=== PATIENT | female | born 1990 | race Caucasian/White ===

== ENCOUNTER 2017-06-20 15:11 | Emergency (ER) | payer BC, MEDICAID ==
[~2017-06-20] VITALS: Ht 167.6 cm; Wt 113.4 kg
[2017-06-20 15:31] VITALS: BP_SYST 140
--- NOTE | 2017-06-20 15:45 | NUR ---
KUSHAL Ferrari at bedside examining patient.
--- NOTE | 2017-06-20 15:45 | NUR ---
Patient to ER bed 2 to gown for evaluation. Side rails up. Report given to Loc MANN.
--- NOTE | 2017-06-20 15:47 | NUR ---
Pt presents to ER c/o sore throat, cough, congestion for the past 2-3 months. Pt states that symptoms have not improved over time and throat pain has increased to 10/10. Pt reports drinking hot water which alleviate her throat momentarily. Pt denies any recent fever, sob, chest pain. Pt denies any significant medical history. Pt AOX4, respirations even and unlabored, NKDA.
[2017-06-20] MEDS ORDERED: DEXAMETHASONE SOD PHOSPHATE 10 MG/ML VIAL IM ONE (16:00)
[2017-06-20] MEDS ORDERED: KETOROLAC TROMETHAMINE 60 MG/2 ML VIAL IM ONE (16:00)
--- NOTE | 2017-06-20 16:00 | NUR ---
Pt medicated and tolerated well; will continue to monitor.
[2017-06-20 16:35] LABS: INFLUENZA A&B ANTIGEN SCREEN NEGATIVE FOR A & B (NEGATIVE); STREPTOCOCCUS A SCREEN (RAPID) POSITIVE (NEGATIVE)
[2017-06-20] MEDS ORDERED: PENICILLIN G BENZATHINE 1.2 MMU/2 ML SYR IM ONE (16:45)
[2017-06-20 17:18] VITALS: BP_SYST 140
--- NOTE | 2017-06-20 17:18 | NUR ---
Patient given written and verbal discharge instructions and verbalizes understanding. ER MD discussed with patient the results and treatment provided. Patient in stable condition. ID arm band removed. Rx of Motrin & Prednisone given. Patient educated on pain management and to follow up with PMD. Pain Scale 3/10. Opportunity for questions provided and answered.
== END 2017-06-20 17:18 | disposition home or self-care (01) ==
LOC: SED 15:11
DX: J02.0 Streptococcal pharyngitis (principal); R03.0 Elevated blood-pressure reading, without diagnosis of hypertension
CPT/HCPCS: 36415; 81025; 86403; 86710; 96372; 99284; J0561; J1100; J1885

== ENCOUNTER 2018-07-08 22:49 | Emergency (ER) | payer MEDICAID ==
[~2018-07-08] VITALS: Ht 165.1 cm; Wt 109.8 kg
[2018-07-08 23:10] VITALS: BP_SYST 145
--- NOTE | 2018-07-08 23:10 | NUR ---
Patient to ER bed 8 to gown for evaluation. Side rails up.
--- NOTE | 2018-07-08 23:30 | NUR ---
Pt complains of lower back pain that started out as "soreness yesterday" and woke up today unable to get out of bed. Pt denies trauma. Pt denies pain/burning upon urination. No other injuries/complaints per patient or noted. Addendum: 07/09/18 at 0005 by [email or web address] Pt states pain increases with movement, more when she's laying in the bed and transitioning to standing position.
--- NOTE | 2018-07-08 23:58 | NUR ---
ER Dr. May at bedside examining patient.
--- NOTE | 2018-07-09 00:12 | NUR ---
Lab at bedside obtaining blood.
[2018-07-09] MEDS ORDERED: KETOROLAC TROMETHAMINE 30 MG VIAL IM ONE (00:15)
[2018-07-09] MEDS ORDERED: KETOROLAC TROMETHAMINE 60 MG/2 ML VIAL IM ONE ×2 (00:26→00:30)
[2018-07-09 00:28] LABS: HEMOGLOBIN 11.5 g/dL (12.0-16.0); MEAN CORPUSCULAR HEMOGLOBIN 27 pg (27-31); MEAN CORPUSCULAR HGB CONC 33 % (32-36); MEAN CORPUSCULAR VOLUME 81 fL (79.0-98.0); RED BLOOD CELL COUNT(AUTO) 4.32 MIL/uL (4.2-6.2); RED CELL DISTRIBUTION WIDTH 16.4 % (9.0-15.0); WHITE BLOOD COUNT (AUTO) 5.7 K/uL (4.8-10.8)
[2018-07-09 00:29] LABS: BASOPHILS % (AUTO) 0.7 % (0.0-2.0); EOSINOPHILS % (AUTO) 2.3 % (0.0-4.0); LYMPHOCYTES % (AUTO) 35.6 % (20.5-51.5); MONOCYTES % (AUTO) 10.5 % (1.7-9.3); NEUTROPHILS # (AUTO) 2.9 K/uL (1.8-7.7); NEUTROPHILS % (AUTO) 50.9 % (40.0-70.0); PLATELET COUNT (AUTO) 285 K/uL (130-430)
[2018-07-09 00:30] LABS: EOSINOPHILS # (AUTO) 0.1 K/uL (0.0-0.4); MONOCYTES # (AUTO) 0.6 K/uL (0.0-1.0)
[2018-07-09 00:36] LABS: CALCIUM 8.5 mg/dL (8.4-11.0); CREATININE 1.09 mg/dL (0.55-1.30); POTASSIUM 4.2 mmol/L (3.5-5.1)
[2018-07-09 00:42] LABS: ALBUMIN 3.4 g/dL (3.4-4.8); TOTAL BILIRUBIN 0.2 mg/dL (0.0-1.0)
--- NOTE | 2018-07-09 01:33 | NUR ---
Pt was ambulatory for a few minutes but states pain is starting to come back, minimally.
[2018-07-09] MEDS ORDERED: METHOCARBAMOL 1000 MG/10 ML VIAL IM ONE ×2 (01:45→02:00)
--- NOTE | 2018-07-09 02:10 | NUR ---
ER Dr. May at bedside explaining results to patient.
[2018-07-09 02:45] VITALS: BP_SYST 141
--- NOTE | 2018-07-09 02:45 | NUR ---
Patient given written and verbal discharge instructions and verbalizes understanding. ER MD discussed with patient the results and treatment provided. Patient in stable condition. ID arm band removed. Rx of Ibuprofen, [place], Methocarbamol given. Patient educated on pain management and to follow up with PMD. Pain Scale 3. Dr. May aware medications were given here and prescription home. Opportunity for questions provided and answered. Medication side effect fact sheet provided.
== END 2018-07-09 02:45 | disposition home or self-care (01) ==
LOC: SED 22:49
DX: M54.5 Low back pain (principal); R03.0 Elevated blood-pressure reading, without diagnosis of hypertension
CPT/HCPCS: 36415; 72100; 80053; 85025; 96372; 99284; J1885; J2800

== ENCOUNTER 2019-05-06 17:33 | Emergency (ER) | payer MEDICAID ==
[~2019-05-06] VITALS: Ht 165.1 cm; Wt 113.4 kg
[2019-05-06 18:11] VITALS: BP_SYST 148
--- NOTE | 2019-05-06 18:15 | NUR ---
Patient triaged and placed in waiting room. VSS and patient appears in no acute distress at this time. Accompanied by mother, awaiting available bed, and MD notified of need for MSE.
--- NOTE | 2019-05-06 18:20 | NUR ---
Patient brought in by mother complaining of abcess to left axilla x 4 days, draining. Patient reports that she was here a couple months ago for the same thing and would like a refill on that medication. Pain 05/24. No other complaints/injuries per patient or as noted. Will continue to monitor.
--- NOTE | 2019-05-06 18:37 | NUR ---
KUSHAL Shannon in triage room examining patient.
[2019-05-06 18:51] VITALS: BP_SYST 136
--- NOTE | 2019-05-06 18:51 | NUR ---
Patient given written and verbal discharge instructions and verbalizes understanding. ER MD discussed with patient the results and treatment provided. Patient in stable condition. ID arm band removed. Rx of Ibuprofen and Keflex given. Patient educated on pain management and to follow up with PMD in 2-3 days. Pain Scale 0/10 Opportunity for questions provided and answered. Medication side effect fact sheet provided.
== END 2019-05-06 18:51 | disposition home or self-care (01) ==
LOC: SED 17:33
DX: L02.412 Cutaneous abscess of left axilla (principal)
CPT/HCPCS: 99283

== ENCOUNTER 2021-08-04 18:06 | Emergency (ER) | payer MEDICAID, OTHER ==
[~2021-08-04] VITALS: Ht 165.1 cm; Wt 120.2 kg
[2021-08-04 18:15] VITALS: BP_SYST 148
[2021-08-04] MEDS ORDERED: KETOROLAC TROMETHAMINE 60 MG/2 ML VIAL IM ONE (18:45)
--- NOTE | 2021-08-04 19:20 | NUR ---
Patient to ER bed 03 to gown for evaluation. Side rails up.
[2021-08-04] MEDS ORDERED: SOM350 PO (20:05)
[2021-08-04] MEDS ORDERED: IBUP-1969 PO (20:05)
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
== END 2021-08-04 21:44 | disposition home or self-care (01) ==
LOC: SED 18:06
DX: S13.4XXA Sprain of ligaments of cervical spine, initial encounter (principal); S33.5XXA Sprain of ligaments of lumbar spine, initial encounter; Z79.899 Other long term (current) drug therapy; V49.49XA Driver injured in collision with other motor vehicles in traffic accident, initial encounter; Y93.89 Activity, other specified; Y92.89 Other specified places as the place of occurrence of the external cause; Y99.8 Other external cause status
CPT/HCPCS: 71045; 72040; 72100; 81025; 96372; 99284; J1885

== ENCOUNTER 2021-11-21 07:49 | Emergency (ER) | payer MEDICAID, OTHER ==
[~2021-11-21] VITALS: Ht 165.1 cm; Wt 122.5 kg
[~2021-11-21 07:49] MED LIST: IBUP-1969 PO; SOM350 PO
[2021-11-21 07:55] VITALS: BP_SYST 135
--- NOTE | 2021-11-21 08:05 | NUR ---
PT TRAIGED AND PLACED IN ED WAITING ROOM FOR AVAILABLE BED IN MAIN ED. ER MD AWARE OF MSE NEEDS
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
[2021-11-21 08:23] LABS: BILIRUBIN,URINE NEGATIVE (NEGATIVE); BLOOD, URINE 3+ (NEGATIVE); COLOR,URINE YELLOW (YELLOW); GLUCOSE,URINE NEGATIVE (NEGATIVE); KETONES,URINE NEGATIVE (NEGATIVE); LEUKOCYTE ESTERASE ,URINE TRACE (NEGATIVE); NITRITE, URINE NEGATIVE (NEGATIVE); PH,URINE 6.5 (5.0-8.0); PROTEIN URINE NEGATIVE (NEGATIVE); UROBILINOGEN,URINE 0.2 (0.2-1.0)
[2021-11-21 08:39] LABS: CLARITY/URINE HAZY (CLEAR)
--- NOTE | 2021-11-21 08:45 | NUR ---
ER DR. CHERRY EXAMINING PT IN TRIAGE
[2021-11-21 08:55] LABS: BACTERIA,URINE MODERATE /HPF (None Seen)
[2021-11-21] MEDS ORDERED: ONDANSETRON 4 MG ODT TAB PO ONE (09:00)
--- NOTE | 2021-11-21 09:18 | NUR ---
PT TO LAB FOR BLOOD DRAW VIA AMBULATION ACCOMPANIED BY STAFF
--- NOTE | 2021-11-21 09:35 | NUR ---
PT EATING BREAKFAST IN LOBBY
[2021-11-21 09:45] LABS: BASOPHILS % (AUTO) 0.5 % (0.0-2.0); CREATININE 0.78 mg/dL (0.55-1.30); EOSINOPHILS % (AUTO) 0.6 % (0.0-4.0); HEMATOCRIT 35.5 % (36-48); HEMOGLOBIN 11.8 g/dL (12.0-16.0); LYMPHOCYTES # (AUTO) 1.4 K/uL (1.0-5.5); LYMPHOCYTES % (AUTO) 19.4 % (20.5-51.5); MEAN CORPUSCULAR HEMOGLOBIN 27 pg (27-31); MEAN CORPUSCULAR HGB CONC 33 % (32-36); MEAN CORPUSCULAR VOLUME 81 fL (79.0-98.0); MONOCYTES # (AUTO) 0.4 K/uL (0.0-1.0); MONOCYTES % (AUTO) 6.3 % (1.7-9.3); NEUTROPHILS # (AUTO) 5.1 K/uL (1.8-7.7); NEUTROPHILS % (AUTO) 73.2 % (40.0-70.0); PLATELET COUNT (AUTO) 256 K/uL (130-430); POTASSIUM 3.9 mmol/L (3.5-5.1); RED BLOOD CELL COUNT(AUTO) 4.39 MIL/uL (4.2-6.2); RED CELL DISTRIBUTION WIDTH 16.3 % (9.0-15.0)
[2021-11-21 10:13] LABS: ALBUMIN 3.3 g/dL (3.4-4.8); TOTAL BILIRUBIN 0.5 mg/dL (0.0-1.0)
[2021-11-21] MEDS ORDERED: cephALEXin 500 MG CAPSULE PO ONE (10:15)
[2021-11-21] MEDS ORDERED: CEPH250C PO (10:34)
[2021-11-21] MEDS ORDERED: DOXY25TA61 PO (10:34)
[2021-11-21] MEDS ORDERED: VITA1CAP PO (10:34)
[2021-11-21] MEDS ORDERED: PNV1TABL75 PO (10:34)
[2021-11-21] MEDS ORDERED: ONDA-8 TL (10:34)
--- NOTE | 2021-11-21 12:00 | NUR ---
ACCOMPANIED PT TO ULTRASOUND
--- NOTE | 2021-11-21 12:45 | NUR ---
PT EATING LUNCH IN LOBBY
[2021-11-21 13:00] VITALS: BP_SYST 135
--- NOTE | 2021-11-21 13:36 | NUR ---
Patient given written and verbal discharge instructions and verbalizes understanding. ER MD discussed with patient the results and treatment provided. Patient in stable condition. ID arm band removed. Rx of IBUPROFEN AND TYLENOL XTRA-STRENGTH given. Patient educated on pain management and to follow up with PMD. Pain Scale 0/10. Opportunity for questions provided and answered. Medication side effect fact sheet provided.
== END 2021-11-21 13:00 | disposition home or self-care (01) ==
LOC: SED 07:49
DX: O20.0 Threatened abortion (principal); O20.9 Hemorrhage in early pregnancy, unspecified; Z3A.08 8 weeks gestation of pregnancy
CPT/HCPCS: 99284; 80053; 81000; 84702; 85025; 86886; 86900; 86901; 87086; 36415; 76817; 81025; Q0162

== ENCOUNTER 2023-07-19 11:15 | Emergency (ER) | payer MEDICAID ==
[~2023-07-19] VITALS: Ht 167.6 cm; Wt 142.9 kg
[2023-07-19 11:15] VITALS: BP_SYST 133; PULSE 62; RESP 18; TEMP 97.2; O2SAT 98
[~2023-07-19 11:15] MED LIST changes: +CEPH250C PO; +DOXY25TA61 PO; +ONDA-8 TL; +PNV1TABL75 PO; +VITA1CAP PO
[2023-07-19] MEDS: HYDROmorphone 1 MG/ML INJ. CARTRIDGE IM ONE (11:50)
[2023-07-19] MEDS ORDERED: HYDR-3917 PO (13:30)
[2023-07-19 14:10] VITALS: BP_SYST 116; PULSE 50; RESP 18; TEMP 97.2; O2SAT 99
== END 2023-07-19 13:51 | disposition home or self-care (01) ==
LOC: SED 11:15
DX: S30.0XXA Contusion of lower back and pelvis, initial encounter (principal); S70.12XA Contusion of left thigh, initial encounter; Z79.899 Other long term (current) drug therapy; W10.9XXA Fall (on) (from) unspecified stairs and steps, initial encounter; Y93.89 Activity, other specified; Y92.89 Other specified places as the place of occurrence of the external cause; Y99.8 Other external cause status
CPT/HCPCS: 99285; 72131; 73590; 81025; 96372; J1170

== ENCOUNTER 2023-11-18 22:14 | Emergency (ER) | payer MEDICAID ==
[~2023-11-18] VITALS: Ht 167.6 cm; Wt 149.7 kg
[~2023-11-18 22:14] MED LIST changes: +HYDR-3917 PO
[2023-11-18 22:27] VITALS: BP_SYST 129; PULSE 62; RESP 18; TEMP 98.4; O2SAT 95
[2023-11-18] MEDS: DEXAMETHASONE SOD PHOSPHATE 10 MG/ML VIAL IM ONE (23:21)
[2023-11-18] MEDS: KETOROLAC TROMETHAMINE 60 MG/2 ML VIAL IM ONE (23:22)
[2023-11-19] MEDS ORDERED: HYDR-3917 PO (00:06)
[2023-11-19] MEDS ORDERED: METH-776 PO (00:06)
[2023-11-19] MEDS ORDERED: NAPR-1172 PO (00:06)
[2023-11-19] MEDS: HYDROcodone/ACETAMIN 5-325 MG TAB (NORCO/ VICODIN) PO ONE (00:49)
[2023-11-19 00:50] VITALS: BP_SYST 117; PULSE 61; RESP 20; TEMP 98.3; O2SAT 97
== END 2023-11-19 00:50 | disposition home or self-care (01) ==
LOC: SED 22:14
DX: M54.50 Low back pain, unspecified (principal)
CPT/HCPCS: 72100; 81025; 96372; 99284; J1100; J1885